=== PATIENT | female | born 1955 | race Caucasian/White ===

== ENCOUNTER → 2021-02-19 | Outpatient (CLI) | payer MEDICARE, OTHER | LOC: EMI 13:00 | DX: M25.561 Pain in right knee (principal); S83.241A Other tear of medial meniscus, current injury, right knee, initial encounter; M22.41 Chondromalacia patellae, right knee | CPT/HCPCS: 73721 ==

== ENCOUNTER → 2021-04-19 | Outpatient (CLI) | payer MEDICARE | LOC: US 16:30 → KOH-I 04-22 11:30 | DX: M79.604 Pain in right leg (principal); M79.89 Other specified soft tissue disorders | CPT/HCPCS: 93971 ==